=== PATIENT | male | born 1970 | race Caucasian/White ===

== ENCOUNTER 2018-01-10 11:44 | Observation (INO) | payer OTHER ==
[2018-01-10 11:51] VITALS: BMI 26.6
--- NOTE | 2018-01-10 12:13 | PDOC ---
History of Present Illness - General Chief Complaint: Chest Pain Stated Complaint: CHEST PAIN/SYNCOPE Time Seen by Provider: 01/10/18 11:59 History Source: Patient Exam Limitations: No Limitations - History of Present Illness Initial Comments: 01/10/18 14:51 Patient is a 47-year-old male with past medical history of hypertension, who presents emergency department today after a syncopal episode on Tuesday. Patient states he was fishing when all of a sudden he got lightheaded and saw a flash a light. He states that he passed out for approximately a minute. Did not hit his head. When he woke up patient states that he had chest pain. He states that since Tuesday he has had 3 out of 10 chest pain with no relief. Patient states that he currently does not have insurance and has never had a cardiac workup before. He is very concerned about possible states today d/t monetary issues. Denies fevers, chills, recent illness, palpitations, edema, nausea, vomiting and diarrhea. Past History - Travel Traveled outside of the country in the last 30 days: No Close contact w/someone who was outside of country & ill: No - Past Medical History Allergies/Adverse Reactions: Allergies Allergy/AdvReac Type Severity Reaction Status Date / Time No Known Allergies Allergy Verified 01/10/18 11:46 COPD: No - Suicide/Smoking/Psychosocial Hx Smoking History: Never smoked Information on smoking cessation initiated: No Hx Alcohol Use: No Drug/Substance Use Hx: No Substance Use Type: None Review of Systems - Review of Systems Able to Perform ROS?: Yes Comments:: 01/10/18 17:40 CONSTITUTIONAL: Absent: fever, chills, diaphoresis, generalized weakness, malaise, loss of appetite HEENT: Absent: rhinorrhea, nasal congestion, throat pain, throat swelling, difficulty swallowing, mouth swelling, ear pain, eye pain, visual Changes CARDIOVASCULAR: Present: chest pain, LOC Absent: palpitations, irregular heart rate, peripheral edema RESPIRATORY: Absent: cough, shortness of breath, dyspnea with exertion, orthopnea, wheezing, stridor, hemoptysis GASTROINTESTINAL: Absent: abdominal pain, abdominal distension, nausea, vomiting, diarrhea, constipation, melena, hematochezia GENITOURINARY: Absent: dysuria, frequency, urgency, hesitancy, hematuria, flank pain, genital pain MUSCULOSKELETAL: Absent: myalgia, arthralgia, joint swelling SKIN: Absent: rash, itching, pallor HEMATOLOGIC/IMMUNOLOGIC: Absent: easy bleeding, easy bruising, lymphadenopathy, frequent infections ENDOCRINE: Absent: unexplained weight gain, unexplained weight loss, heat intolerance, cold intolerance NEUROLOGIC: Absent: headache, focal weakness or paresthesias, dizziness, unsteady gait, seizure, mental status changes, bladder or bowel incontinence PSYCHIATRIC: Absent: anxiety, depression, suicidal or homicidal ideation, hallucinations. Is the patient limited Kiswahili proficient: No *Physical Exam - Vital Signs Last Vital Signs Temp Pulse Resp BP Pulse Ox 98.1 F 100 H 18 141/106 100 01/10/18 11:47 01/10/18 11:47 01/10/18 11:47 01/10/18 11:47 01/10/18 11:47 - Physical Exam Comments: 01/10/18 14:41 GENERAL: Well developed, well nourished. Awake and alert. No acute distress. HEENT: Normocephalic, atraumatic. PERRLA, EOMI. No conjunctival pallor. Sclera are non- icteric. Moist mucous membranes. Oropharynx is clear. NECK: Supple. Full ROM. No JVD. Carotid pulses 2+ and symmetric, without bruits. No thyromegaly. No lymphadenopathy. CARDIOVASCULAR: Regular rate and rhythm. No murmurs, rubs, or gallops. Distal pulses are 2+ and symmetric. Chest pain is non-reproducible. PULMONARY: No evidence of respiratory distress. Lungs clear to auscultation bilaterally. No wheezing, rales or rhonchi. ABDOMINAL: Soft. Non-tender. Non-distended. No rebound or guarding. No organomegaly. Normoactive bowel sounds. MUSCULOSKELETAL Normal range of motion at all joints. No bony deformities or tenderness. No CVA tenderness. EXTREMITIES: No cyanosis. No clubbing. No edema. No calf tenderness. SKIN: Warm and dry. Normal capillary refill. No rashes. No jaundice. NEUROLOGICAL: Alert, awake, appropriate. Cranial nerves 2-12 intact. No deficits to light touch and temperature in face, upper extremities and lower extremities. No motor deficits in the in face, upper extremities and lower extremities. Normoreflexic in the upper and lower extremities. Normal speech. Toes are down- going bilaterally. Gait is normal without ataxia. PSYCHIATRIC: Cooperative. Good eye contact. Appropriate mood and affect. ED Treatment Course - LABORATORY CBC & Chemistry Diagram: 01/10/18 12:57 01/10/18 12:57 Medical Decision Making - Medical Decision Making 01/10/18 14:52 Patient is a 47-year-old male with past history of hypertension who presents emergency Department with 4 days of 3/10 substernal chest pain s/p syncopal episode on Tuesday. The chest pain is nonreproducible at this time. The pain does not radiate. EKG done in triage. Patient will require two troponins at this time and based on patient's story will most likely require observation for further cardiac monitoring. Chest x-ray, basic labs, aspirin ordered at this time. Reevaluate 01/10/18 15:58 Patient is very hesitant to stay in the emergency department he is very concerned about bills as he does not have insurance at this time. Patient states that he switched jobs in March never got new Insurance. PCP is Dr. Patterson. insulation worker furnace installer notified at this time to help obtain insurance. Jemma Russ also notified. Will send manager of financial reporting tomorrow to see the patient. 01/10/18 17:26 First troponin is negative, no leukocytosis, electrolytes within normal limits, no GONZÁLEZ at this time. D-dimer is negative. Second troponin pending. EKG shows normal sinus rhythm rate of 92 bpm. Normal intervals, normal axis, no acute ST-T wave changes. Chest pain unresolved in the emergency department. Now blood pressure 140/102. 0.4 mg of nitroglycerin ordered at this time. We will admit to hospitalist at this time for telemetry observation further medical and stress testing to be done tomorrow. Case discussed with JUVENAL Grewal *DC/Admit/Observation/Transfer Diagnosis at time of Disposition: Chest pain Qualifiers: Chest pain type: unspecified Qualified Code(s): R07.9 - Chest pain, unspecified - Discharge Dispostion Decision to Admit order: Yes - Referrals Referrals: Mayelin Patterson MD [Primary Care Provider] - - Patient Instructions - Post Discharge Activity
--- NOTE | 2018-01-10 12:31 | PDOC ---
*Physical Exam - Vital Signs Last Vital Signs Temp Pulse Resp BP Pulse Ox 98.1 F 100 H 18 141/106 100 01/10/18 11:47 01/10/18 11:47 01/10/18 11:47 01/10/18 11:47 01/10/18 11:47 Heart Score/ECG Review - History History: Moderately suspicious - Electrocardiogram EKG: Non specific repolarization disturbance - Age Age: 45-65 - Risk Factors Based on the list above the patient has:: No risk factors known #1 ECG reviewed & interpreted by me at: 11:55 01/10/18 12:31 NSR 99, no std/emma, normal axis, normal intervals, QTC 415 msec ED Treatment Course - LABORATORY CBC & Chemistry Diagram: 01/11/18 05:47 01/11/18 05:47 Medical Decision Making - Medical Decision Making 01/10/18 12:31 Pt seen by the Advanced Practice Provider under my direct supervision Pt interviewed and examined Ancillary studies reviewed I agree with plan as outlined by the Advanced Practice Provider KATHARINE Smith 47 yo M c/ no pmh p/w drop syncope 2d ago with persistent midsternal chest pressure. Never had stress or echo. Radial pulses equal bilaterally 2+. Lungs CTA b/l I agree with KATHARINE's plan. R/o ACS, cardiac disease for cp and syncope. D-dimer to r/o PE. Admit to telemetry *DC/Admit/Observation/Transfer Diagnosis at time of Disposition: Chest pain - Discharge Dispostion Disposition: TRANSFER ACUTE CARE/OTHER HOSP - Referrals - Patient Instructions - Post Discharge Activity
[2018-01-10 13:09] LABS: BASO % 0.4 % (0-2.0); EOS % 0.2 % (0-4.5); HEMATOCRIT 43.3 % (35.4-49); HEMOGLOBIN 14.7 GM/dL (11.7-16.9); LYMPH % 11.1 % (8-40); MCH 30.4 pg (25.7-33.7); MCHC 33.9 g/dl (32.0-35.9); MEAN CELL VOLUME 89.6 fl (80-96); MEAN PLT VOLUME 6.8 fl (7.5-11.1); MONO % 5.5 % (3.8-10.2); NEUT % 82.8 % (42.8-82.8); PLATELET COUNT 214 K/MM3 (134-434); RBC 4.84 M/mm3 (4.00-5.60); WHITE BLOOD COUNT 7.1 K/mm3 (4.0-10.0)
[2018-01-10 13:19] LABS: INR 1.07 (0.82-1.09); PROTHROMBIN TIME (PATIENT) 12.1 SEC (9.7-13.0)
[2018-01-10 13:30] LABS: ANION GAP 4 (8-16); CALCIUM 9.2 mg/dL (8.5-10.1); CHLORIDE 110 mmol/L (98-107); CO2 27 mmol/L (21-32); GLUCOSE,RANDOM 116 mg/dL (74-106); MAGNESIUM 2.1 mg/dL (1.8-2.4); SGOT/AST 14 U/L (15-37); SGPT/ALT 31 U/L (12-78); SODIUM 141 mmol/L (136-145)
[2018-01-10 13:32] LABS: ALK PHOS 78 U/L (45-117); BILIRUBIN,TOTAL 0.6 mg/dL (0.2-1.0); BLOOD UREA NITROGEN 12 mg/dL (7-18)
[2018-01-10 13:38] LABS: URINE APPEARANCE CLEAR; URINE BILIRUBIN NEGATIVE (<2.0 mg/dL); URINE COLOR LTYELLOW; URINE GLUCOSE (UA) NEGATIVE (NEGATIVE); URINE KETONE NEGATIVE (NEGATIVE); URINE LEUK ESTERASE NEGATIVE (NEGATIVE); URINE NITRITE NEGATIVE (NEGATIVE); URINE PROTEIN NEGATIVE (NEGATIVE); URINE UROBILINOGEN NEGATIVE mg/dL (0.2-1.0)
--- NOTE | 2018-01-10 13:53 | EKG ---
Test Reason : Blood Pressure : / mmHG Vent. Rate : 092 BPM Atrial Rate : 092 BPM P-R Int : 182 ms QRS Dur : 078 ms QT Int : 336 ms P-R-T Axes : 063 039 057 degrees QTc Int : 415 ms POOR DATA QUALITY, INTERPRETATION MAY BE ADVERSELY AFFECTED NORMAL SINUS RHYTHM POSSIBLE LEFT ATRIAL ENLARGEMENT SEPTAL INFARCT , AGE UNDETERMINED ABNORMAL ECG NO PREVIOUS ECGS AVAILABLE Confirmed by MD Julissa, Marques ([id number]) on 01/10/2018 1:53:04 PM Referred By: Confirmed By:Marques Costa MD
[2018-01-10] MEDS ORDERED: ASPIRIN 325 MG ENTERIC COATED TABLET (FP) PO ONE (14:14)
[2018-01-10] MEDS ORDERED: ASPIRIN 325 MG TABLET ONE (14:37)
[2018-01-10] MEDS ORDERED: NITROGLYCERIN SUBLINGUAL 1/150 0.4 MG TAB SL ONE (17:36)
[2018-01-10] MEDS ORDERED: NITROGLYCERIN SUBLINGUAL 1/150 0.4 MG TAB ONE (17:53)
--- NOTE | 2018-01-10 18:13 | HP ---
Admitting History and Physical - Primary Care Physician PCP: Mayelin Patterson - Admission Chief Complaint: chest pain History of Present Illness: This is a 47 year old male with new hx of hypothyroid and htn. He stopped taking his meds due to insurance not paying anymore he had been on them for ~ 1 year. His pcp told him they were low doses. Today, the patient presented with chest pain for 2 days. On Monday 01/08 he was fishing in the morning and had a bright light flash in his eyes and then he syncopized. He denies palpitations, sobs, diaphoresis, aura prior to the event, and when he came to he does not think he hit is head and he woke up on his side. He was a with a friend but the friend did not whiteness. Since Tuesday he has been having mid sternal left sided chest pain. It is reproducible on exam and when extends his arms. During this same event he was also short of breath and still feels some sob now when he takes a deep breath. He denies smoking or any other medical problems, changes in activity level, this is a first time episode for him. Today he went to his PCP who told him to go to the ER. Currently, still has chest pain, non radiating, pressure like, mild sob, no abdominal pain, n/v, fever, chills. ED course: 1. Trop x1 neg 2. TSH elevated 3. EKG no ischemic changes History Source: Patient Limitations to Obtaining History: No Limitations - Past Medical History Cardiovascular: Yes: HTN Endocrine: Yes: Hypothyroidism - Smoking History Smoking history: Never smoked - Alcohol/Substance Use Hx Alcohol Use: No Home Medications - Allergies Allergies/Adverse Reactions: Allergies Allergy/AdvReac Type Severity Reaction Status Date / Time No Known Allergies Allergy Verified 01/10/18 11:46 Review of Systems - Review of Systems Constitutional: reports: No Symptoms Eyes: reports: No Symptoms HENT: reports: No Symptoms Neck: reports: No Symptoms Cardiovascular: reports: Chest Pain, Shortness of Breath Respiratory: reports: SOB Gastrointestinal: reports: No Symptoms Genitourinary: reports: No Symptoms Musculoskeletal: reports: No Symptoms Integumentary: reports: No Symptoms Neurological: reports: No Symptoms Endocrine: reports: No Symptoms Hematology/Lymphatic: reports: No Symptoms Psychiatric: reports: No Symptoms Physical Examination Vital Signs: Vital Signs Temperature 98.1 F 01/10/18 11:47 Pulse Rate 82 01/10/18 15:00 Respiratory Rate 20 01/10/18 15:00 Blood Pressure 131/107 01/10/18 15:00 O2 Sat by Pulse Oximetry (%) 97 01/10/18 15:00 Constitutional: Yes: Well Nourished Eyes: Yes: Conjunctiva Clear HENT: Yes: Atraumatic Neck: Yes: Supple Cardiovascular: Yes: Regular Rate and Rhythm, S1, S2 Respiratory: Yes: Regular, CTA Bilaterally Gastrointestinal: Yes: Normal Bowel Sounds, Soft Renal/: Yes: WNL Musculoskeletal: Yes: WNL Extremities: Yes: WNL Edema: No Neurological: Yes: Alert, Oriented, Cran Nerves II-XII Intact ...Motor Strength: WNL Psychiatric: Yes: Alert, Oriented Labs: CBC, BMP 01/10/18 12:57 01/10/18 12:57 Imaging - Results Chest X-ray: Report Reviewed, Image Reviewed EKG: Report Reviewed Problem List - Problems (1) Syncope Code(s): R55 - SYNCOPE AND COLLAPSE (2) Chest pain Code(s): R07.9 - CHEST PAIN, UNSPECIFIED Qualifiers: Chest pain type: unspecified Qualified Code(s): R07.9 - Chest pain, unspecified Assessment/Plan Assessment: 47 year old male admitted for syncope and chest pain Plan: 1. Chest pain - Cycle trops x3 - ECHO in aM - NPO after midnight for possible stress - Start ASA, lopressor - Lipid panel - TSH is elevated, get t3, t4, pt was on synthroid but stopped taking due to insurance 2. Syncope - Carotid dopplers 3. HTN - Monitor, started on bb 4. DVT -Lovenox sq Visit type - Emergency Visit Emergency Visit: Yes Care time: The patient presented to the Emergency Department on the above date and was hospitalized for further evaluation of their emergent condition. - New Patient This patient is new to me today: Yes Date on this admission: 01/10/18 - Critical Care Critical Care patient: No Hospitalist Screening - Colonoscopy Questionnaire Colonoscopy Questionnaire: Colonoscopy Questionnaire - Patient: 50 - 75 years old and never had a screening colonoscopy: Unknown History of colon or rectal polyps, or CA: Unknown History of IBD, Crohn's disease or UC: Unknown History of abdominal radiation therapy as a child: Unknown - Relative: 1 with colon or rectal CA, or polyps at age 60 or younger: Unknown Colon or rectal CA diagnosed at age 45 or younger: Unknown Multiple relatives with colon or rectal CA: Unknown - Outcome: Screening Result: Negative Screen
[2018-01-10] MEDS ORDERED: morphine SULFATE 4 MG/ML VIAL IVPUSH PRN (18:22)
[2018-01-10] MEDS ORDERED: METOPROLOL TARTRATE 25 MG TABLET (FP) ONE ×2 (18:38→19:32)
[2018-01-10] MEDS: METOPROLOL TARTRATE 25 MG TABLET (FP) PO SCH (18:38)
[2018-01-10] MEDS ORDERED: MORPHINE SULFATE 10 MG/1 ML *VIAL ONE (23:33)
[2018-01-11 07:30] LABS: ANION GAP 5 (8-16); BLOOD UREA NITROGEN 14 mg/dL (7-18); CHLORIDE 112 mmol/L (98-107); CO2 26 mmol/L (21-32); GLUCOSE,RANDOM 95 mg/dL (74-106); SODIUM 143 mmol/L (136-145)
[2018-01-11 07:31] LABS: ALBUMIN 3.7 g/dl (3.4-5.0); ALK PHOS 75 U/L (45-117); BILIRUBIN,TOTAL 0.8 mg/dL (0.2-1.0); CALCIUM 8.6 mg/dL (8.5-10.1); CHOLESTEROL 176 mg/dL (50-200); HDL CHOLESTEROL 37 mg/dl (29-89); SGOT/AST 15 U/L (15-37); SGPT/ALT 32 U/L (12-78); TOT PROT 6.7 g/dl (6.4-8.2); TRIGLYCERIDES 127 mg/dL (35-160); WHITE BLOOD COUNT 6.4 K/mm3 (4.0-10.0)
[2018-01-11 07:32] LABS: BASO % 0.2 % (0-2.0); EOS % 0.8 % (0-4.5); HEMATOCRIT 41.7 % (35.4-49); HEMOGLOBIN 14.3 GM/dL (11.7-16.9); MCH 30.4 pg (25.7-33.7); MCHC 34.3 g/dl (32.0-35.9); MEAN CELL VOLUME 88.6 fl (80-96); MEAN PLT VOLUME 7.2 fl (7.5-11.1); MONO % 8.3 % (3.8-10.2); NEUT % 73.7 % (42.8-82.8); PLATELET COUNT 200 K/MM3 (134-434); RBC 4.71 M/mm3 (4.00-5.60); RDW 14.2 % (11.9-15.9)
--- NOTE | 2018-01-11 12:21 | PN ---
Progress Note, Physician Chief Complaint: chest pain History of Present Illness: -pain reproducible atypical chest pain NAD at this time to be seen by Cardiology u/s carotid negative -Awaiting echo and NST - Current Medication List Current Medications: Active Medications Aspirin (Ecotrin -) 81 mg PO DAILY [facility] Enoxaparin Sodium (Lovenox -) 40 mg SQ DAILY [facility] Metoprolol Tartrate (Lopressor -) 25 mg PO DAILY [facility] Last Admin: 01/10/18 18:38 Dose: 25 mg Morphine Sulfate (Morphine Sulfate) 1 mg IVPUSH Q4H PRN PRN Reason: PAIN LEVEL 1-5 Last Admin: 01/10/18 23:52 Dose: 1 mg - Objective Vital Signs: Vital Signs Temperature 98.1 F 01/10/18 11:47 Pulse Rate 75 01/11/18 06:30 Respiratory Rate 18 01/11/18 07:50 Blood Pressure 128/88 01/11/18 06:30 O2 Sat by Pulse Oximetry (%) 96 01/11/18 07:50 Constitutional: Yes: Well Nourished, No Distress, Calm Cardiovascular: Yes: Regular Rate and Rhythm Respiratory: Yes: Regular Musculoskeletal: Yes: WNL Extremities: Yes: WNL Neurological: Yes: Alert, Oriented Psychiatric: Yes: Alert, Oriented Labs: CBC, BMP 01/11/18 05:47 01/11/18 05:47 INR, PTT INR 1.07 (0.82-1.09) 01/10/18 12:57 Problem List - Problems (1) Chest pain Assessment/Plan: -cardiology consult -tele monitoring -U/S carotid unremarkable -echo -NST Code(s): R07.9 - CHEST PAIN, UNSPECIFIED Qualifiers: Chest pain type: unspecified Qualified Code(s): R07.9 - Chest pain, unspecified (2) Syncope Code(s): R55 - SYNCOPE AND COLLAPSE Assessment/Plan see problem list
[2018-01-11] MEDS: ASPIRIN COATED 81 MG TABLET.EC PO SCH (13:48)
[2018-01-11] MEDS: ENOXAPARIN NA (PORCINE) 40 MG/0.4 ML DISP.SYRIN SQ SCH (13:48)
[2018-01-11] MEDS: METOPROLOL TARTRATE 25 MG TABLET (FP) PO SCH ×2 (13:48→21:11)
--- NOTE | 2018-01-11 14:55 | CON.CARD ---
Consult Consult Specialty:: Cardiology Referred by:: Jose Miguel Reason for Consultation:: chest pain and syncope - History of Present Illness Chief Complaint: Chest pain and passed out History of Present Illness: 47 year old male with a pmhx of hypothyroidism and htn off his meds who went fishing on 01/08 in the morning and after catching a fish and getting excited he saw a bright light flash and than woke up on the ground. No chest pain or palpitations prior. Unclear if any trauma. Friend was there but did not witness. No confusion after. Denies any sob. Had some central chest tenderness which persisted for the day after event. Now feels well with no complaints. Trops negative EKG sinus with no ischemic changes CXR clear lungs Echocardiogram normal LVEF with moderate MR Carotid duplex no significant stenosis. - History Source History Provided By: Patient, Medical Record - Past Medical History Cardio/Vascular: Yes: HTN Endocrine: Yes: Hypothyroidism - Alcohol/Substance Use Hx Alcohol Use: No - Smoking History Smoking history: Never smoked Home Medications - Allergies Allergies/Adverse Reactions: Allergies Allergy/AdvReac Type Severity Reaction Status Date / Time No Known Allergies Allergy Verified 01/10/18 11:46 - Home Medications Home Medications: Ambulatory Orders NK [No Known Home Medication] 01/11/18 Vital Signs: Vital Signs Temperature 98.1 F 01/10/18 11:47 Pulse Rate 88 01/11/18 13:42 Respiratory Rate 18 01/11/18 13:42 Blood Pressure 125/91 01/11/18 13:42 O2 Sat by Pulse Oximetry (%) 96 01/11/18 13:42 Constitutional: Yes: No Distress Neck: Yes: WNL Respiratory: Yes: CTA Bilaterally Gastrointestinal: Yes: Normal Bowel Sounds, Soft Cardiovascular: Yes: Regular Rate and Rhythm JVD: No Carotid Bruit: No PMI: Non-Displaced Heart Sounds: Yes: S1, S2 Murmur: No: Systolic Murmur Extremities: Yes: WNL Edema: No - Other Data Labs, Other Data: CBC, BMP 01/11/18 05:47 01/11/18 05:47 INR, PTT INR 1.07 (0.82-1.09) 01/10/18 12:57 Troponin, BNP 01/10/18 01/11/18 18:26 05:47 Troponin I < 0.02 < 0.02 Troponin, BNP 01/10/18 01/11/18 18:26 05:47 Troponin I < 0.02 < 0.02 Imaging - Results Chest X-ray: Report Reviewed EKG: Image Reviewed Problem List - Problems (1) Chest pain Code(s): R07.9 - CHEST PAIN, UNSPECIFIED Qualifiers: Chest pain type: unspecified Qualified Code(s): R07.9 - Chest pain, unspecified (2) Syncope Code(s): R55 - SYNCOPE AND COLLAPSE Assessment/Plan 47 year old male with a pmhx of hypothyroidism and htn off his meds who went fishing on 01/08 in the morning and after catching a fish and getting excited he saw a bright light flash and than woke up on the ground. No chest pain or palpitations prior. Unclear if any trauma. Friend was there but did not witness. No confusion after. Denies any sob. Had some central chest tenderness which persisted for the day after event. Now feels well with no complaints. Trops negative EKG sinus with no ischemic changes CXR clear lungs Echocardiogram normal LVEF with moderate MR Carotid duplex no significant stenosis. 1) Chest pain -was atypical in nature as per report was reproducible. Unclear if any trauma after fall. EKG no ischemic changes and CE's negative. Underwent stress test today for ischemia evaluation and if negative no further ischemia work up 2) Syncope -Carotids neg for stenosis No signs of MT Echo with normal LVEF and mod MR EKG sinus -Pending NST eval for ischemia -Cardiac campbell would consider fpc event monitor as an outpatient if everything else unremarkable. 3) HTN If +ischemia on NST than bblocker -If no ischemia than would consider low dose CCB.
[2018-01-12] MEDS: ASPIRIN COATED 81 MG TABLET.EC PO SCH (09:21)
[2018-01-12] MEDS: METOPROLOL TARTRATE 25 MG TABLET (FP) PO SCH (09:21)
[2018-01-12] MEDS: ENOXAPARIN NA (PORCINE) 40 MG/0.4 ML DISP.SYRIN SQ SCH (09:21)
--- NOTE | 2018-01-12 12:58 | PN ---
Progress Note, Physician Chief Complaint: patient admitted with chest pain had stress test shows moderate size posterior lateral reversible perfusion defect - Current Medication List Current Medications: Active Medications Aspirin (Ecotrin -) 81 mg PO DAILY [facility] Last Admin: 01/12/18 09:21 Dose: 81 mg Enoxaparin Sodium (Lovenox -) 40 mg SQ DAILY [facility] Last Admin: 01/12/18 09:21 Dose: 40 mg Metoprolol Tartrate (Lopressor -) 25 mg PO BID [facility] Last Admin: 01/12/18 09:21 Dose: 25 mg Morphine Sulfate (Morphine Sulfate) 1 mg IVPUSH Q4H PRN PRN Reason: PAIN LEVEL 1-5 Last Admin: 01/10/18 23:52 Dose: 1 mg - Objective Vital Signs: Vital Signs Temperature 98.3 F 01/12/18 10:00 Pulse Rate 68 01/12/18 10:00 Respiratory Rate 18 01/12/18 10:00 Blood Pressure 121/75 01/12/18 10:00 O2 Sat by Pulse Oximetry (%) 98 01/12/18 10:00 Constitutional: Yes: Calm Neck: Yes: Trachea Midline Cardiovascular: Yes: Regular Rate and Rhythm, S1, S2 Respiratory: Yes: CTA Bilaterally Gastrointestinal: Yes: Normal Bowel Sounds, Soft Edema: No Neurological: Yes: Alert, Oriented Labs: CBC, BMP 01/11/18 05:47 01/11/18 05:47 INR, PTT INR 1.07 (0.82-1.09) 01/10/18 12:57 Problem List - Problems (1) Chest pain Assessment/Plan: on telemetry NST result noted- ischemia on BB and started on statin, aspirin awaiting cardiology recommendations ? transfer to [facility] Code(s): R07.9 - CHEST PAIN, UNSPECIFIED Qualifiers: Chest pain type: unspecified Qualified Code(s): R07.9 - Chest pain, unspecified (2) Syncope Assessment/Plan: carotid doppler negative NST noted echo left ventricle size normal ejection fraction normal as well no wall motion abnormality Code(s): R55 - SYNCOPE AND COLLAPSE
--- NOTE | 2018-01-12 16:15 | PN ---
Progress Note, Physician Chief Complaint: Has occasional mild chest tightness Tele: sinus with pvc's History of Present Illness: 47 year old male with a pmhx of hypothyroidism and htn off his meds who went fishing on 01/08 in the morning and after catching a fish and getting excited he saw a bright light flash and than woke up on the ground. No chest pain or palpitations prior. Unclear if any trauma. Friend was there but did not witness. No confusion after. Denies any sob. Had some central chest tenderness which persisted for the day after event. Now feels well with no complaints. Trops negative EKG sinus with no ischemic changes CXR clear lungs Echocardiogram normal LVEF with moderate MR Carotid duplex no significant stenosis. - Current Medication List Current Medications: Active Medications Aspirin (Ecotrin -) 81 mg PO DAILY [facility] Last Admin: 01/12/18 09:21 Dose: 81 mg Enoxaparin Sodium (Lovenox -) 40 mg SQ DAILY [facility] Last Admin: 01/12/18 09:21 Dose: 40 mg Metoprolol Tartrate (Lopressor -) 25 mg PO BID [facility] Last Admin: 01/12/18 09:21 Dose: 25 mg Morphine Sulfate (Morphine Sulfate) 1 mg IVPUSH Q4H PRN PRN Reason: PAIN LEVEL 1-5 Last Admin: 01/10/18 23:52 Dose: 1 mg Rosuvastatin Calcium (Crestor -) 5 mg PO HS [facility] - Objective Vital Signs: Vital Signs Temperature 98.3 F 01/12/18 10:00 Pulse Rate 68 01/12/18 10:00 Respiratory Rate 18 01/12/18 10:00 Blood Pressure 121/75 01/12/18 10:00 O2 Sat by Pulse Oximetry (%) 98 01/12/18 10:00 Constitutional: Yes: No Distress Neck: Yes: Supple Cardiovascular: Yes: Regular Rate and Rhythm, S1, S2. No: JVD, Murmur Respiratory: Yes: CTA Bilaterally Gastrointestinal: Yes: Normal Bowel Sounds, Soft Edema: No Labs: CBC, BMP 01/11/18 05:47 01/11/18 05:47 INR, PTT INR 1.07 (0.82-1.09) 01/10/18 12:57 Problem List - Problems (1) Chest pain Code(s): R07.9 - CHEST PAIN, UNSPECIFIED Qualifiers: Chest pain type: unspecified Qualified Code(s): R07.9 - Chest pain, unspecified (2) Syncope Code(s): R55 - SYNCOPE AND COLLAPSE Assessment/Plan 47 year old male with a pmhx of hypothyroidism and htn off his meds who went fishing on 01/08 in the morning and after catching a fish and getting excited he saw a bright light flash and than woke up on the ground. No chest pain or palpitations prior. Unclear if any trauma. Friend was there but did not witness. No confusion after. Denies any sob. Has been having on and off chest tightness since event. Chest pressure seems to worsen with exertion. Trops negative EKG sinus with no ischemic changes CXR clear lungs Echocardiogram normal LVEF with moderate MR Carotid duplex no significant stenosis. NST with moderate sized posterolateral reversible defect. -Aspirin/statin/low dose beta cortez Plan to transfer for cardiac cath.
[2018-01-12 18:19] VITALS: BP 133/85; PULSE 83; TEMP 98.2
[2018-01-12] MEDS ORDERED: ROSUVASTATIN CA 10 MG TABLET (FP) PO SCH ×2 (22:00)
== END 2018-01-12 19:39 | disposition short-term general hospital (02) ==
LOC: JER 11:44 → JERBED 17:58 → J4W 01-11 19:00
PROVIDERS: ADMIT Family Medicine; ATTEND Family Medicine
PROC: 3E033NZ Introduction of Analgesics, Hypnotics, Sedatives into Peripheral Vein, Percutaneous Approach (ICD-10-PCS; principal; 2018-01-10)
PROC: 3E013GC Introduction of Other Therapeutic Substance into Subcutaneous Tissue, Percutaneous Approach (ICD-10-PCS; 2018-01-10)
DX: R07.9 Chest pain, unspecified (principal); R55 Syncope and collapse; I10 Essential (primary) hypertension; E03.9 Hypothyroidism, unspecified
CPT/HCPCS: 36415; 71046-TC-FY; 78452-TC; 80053; 80061; 81003; 82550; 83036; 83721; 83735; 84439; 84443; 84481; 84484; 85025; 85379; 85610; 93005; 93010; 93017; 93306-TC; 93880-TC; 99285-25; A9502; G0378

== ENCOUNTER 2020-12-19 19:57 | Emergency (ER) | payer OTHER ==
[2020-12-19 20:03] VITALS: PULSE 89; TEMP 97; BMI 24.3
[2020-12-19 21:20] LABS: BASO % 0.3 % (0-2.0); EOS % 0.4 % (0-4.5); HEMATOCRIT 42.3 % (35.4-49); HEMOGLOBIN 14.3 GM/dL (11.7-16.9); LYMPH % 13.7 % (8-40); MCH 30.6 pg (25.7-33.7); MCHC 33.8 g/dl (32.0-35.9); MEAN CELL VOLUME 90.5 fl (80-96); MEAN PLT VOLUME 6.9 fl (7.5-11.1); MONO % 6.5 % (3.8-10.2); NEUT % 79.1 % (42.8-82.8); PLATELET COUNT 207 K/MM3 (134-434); RBC 4.67 M/mm3 (4.00-5.60); RDW 13.9 % (11.9-15.9); WHITE BLOOD COUNT 7.5 K/mm3 (4.0-10.0)
[2020-12-19] MEDS ORDERED: METHOCARBAMOL 500 MG TABLET PO ONE (21:39)
[2020-12-19] MEDS ORDERED: IBUPROFEN 600 MG TABLET (FP) PO ONE ×2 (21:39→21:42)
[2020-12-19] MEDS ORDERED: METHOCARBAMOL 500 MG TABLET ONE (21:42)
[2020-12-19 21:43] LABS: CHLORIDE 108 mmol/L (98-107); SODIUM 142 mmol/L (136-145)
[2020-12-19 21:45] LABS: ANION GAP 7 MMOL/L (8-16); CALCIUM 9.6 mg/dL (8.5-10.1); CO2 26 mmol/L (21-32); GLUCOSE,RANDOM 96 mg/dL (74-106); LIPASE 173 U/L (73-393)
[2020-12-19 21:48] LABS: CREATININE 0.9 mg/dL (0.55-1.3); SGOT/AST 16 U/L (15-37)
[2020-12-19 21:50] LABS: BILIRUBIN,TOTAL 0.5 mg/dL (0.2-1); SGPT/ALT 30 U/L (13-61); TOT PROT 6.9 g/dl (6.4-8.2)
[2020-12-19 21:51] LABS: ALK PHOS 69 U/L (45-117)
[2020-12-19 22:04] VITALS: BP 139/97
== END 2020-12-19 22:38 | disposition home or self-care (01) ==
LOC: JER 19:57
DX: R07.9 Chest pain, unspecified (principal)
CPT/HCPCS: 36415; 71046-TC-FY; 80053; 83690; 84484; 85025; 93005; 93010; 99285-25